=== PATIENT | female | born 1970 | race Caucasian/White ===

== ENCOUNTER → 2024-04-18 | Outpatient (CLI) | payer OTHER | LOC: LAB 16:47 | DX: N39.0 Urinary tract infection, site not specified (principal) ==

== ENCOUNTER → 2024-08-13 | Outpatient (CLI) | payer OTHER ==
[~2024-08-13] MED LIST: Iohexol 300 - 100 ML VIAL IV ONE
[2024-08-13 09:58] LABS: BASO # 0.03 K/mm3 (0.02-0.10); EOS % 3.1 % (1.0-5.0); HEMATOCRIT 42.2 % (37.0-47.0); HEMOGLOBIN 13.3 g/dL (12.5-16.0); LYMPH# 1.84 K/mm3 (1.50-4.00); MEAN CELL VOLUME 84 fl (78-100); MEAN CORPUSCULAR HEMOGLOBIN 27 pg (27-31); MEAN CORPUSCULAR HGB CONC 32 g/dL (33-37); MEAN PLATELET VOLUME 9.5 fl (7.4-10.4); MONO # 0.48 K/mm3 (0.20-0.80); NEU # 3.89 K/mm3 (1.40-6.50); PLATELET COUNT 254 K/mm3 (130-400); RED CELL DISTRIBUTION WIDTH 13.5 % (11.5-14.5); WHITE BLOOD COUNT 6.5 K/mm3 (4.8-10.8)
[2024-08-13 10:03] LABS: CALCIUM 8.8 mg/dL (8.3-10.5)
[2024-08-13 10:04] LABS: TOTAL PROTEIN 6.6 g/dL (6.4-8.3)
[2024-08-13 10:06] LABS: TOTAL BILIRUBIN 0.3 mg/dL (0.2-1.2)
== END ==
LOC: LAB 09:18
PROVIDERS: Internal Medicine
DX: J01.90 Acute sinusitis, unspecified (principal)
CPT/HCPCS: Q9967

== ENCOUNTER → 2024-09-11 | Outpatient (CLI) | payer OTHER | LOC: RAD 12:15 | DX: R05.9 Cough, unspecified (principal); R91.1 Solitary pulmonary nodule ==